=== PATIENT | female | born 1970 | race Caucasian/White ===

== ENCOUNTER → 2017-11-12 | Outpatient (CLI) | payer BC, MEDICARE ==
[~2017-11-12] MED LIST: ESTRACE1 MG PO; ESTRADIOL1 EAC5; EVISTA PO; GLUCOPHAGE500 MG PO; LEVOXYL112 MCG PO; LEXAPRO20 MG PO; METOPROLOL SUCC25 M1 PO; TOPAMAX50 MG PO; WELLBUTRIN 75 M75 M1 PO; ZOCOR 20 MG TAB20 M1 PO
== END ==
LOC: M.CT 12:53
DX: R11.2 Nausea with vomiting, unspecified (principal)

== ENCOUNTER → 2017-12-13 | Outpatient (CLI) | payer BC, MEDICARE | LOC: M.RAD 13:46 | DX: M48.07 Spinal stenosis, lumbosacral region (principal); M53.3 Sacrococcygeal disorders, not elsewhere classified ==

== ENCOUNTER 2019-09-15 21:08 | Emergency (ER) | payer BC, MEDICARE ==
[~2019-09-15] VITALS: Ht 167.6 cm; Wt 79.4 kg
[2019-09-15] MEDS ORDERED: CYMBALTA60 MG PO (21:25)
[2019-09-15] MEDS ORDERED: XANAX 0.5 MG0.5 M1 PO (21:25)
[2019-09-16] MEDS ORDERED: FLEXERIL PO (01:32)
[2019-09-16] MEDS ORDERED: HYDROCODON-ACE1 EAC8 PO (01:32)
[2019-09-16 01:40] VITALS: BP 165/91
== END 2019-09-16 01:40 | disposition home or self-care (01) ==
LOC: M.ERS 21:08
DX: M54.6 Pain in thoracic spine (principal); M54.5 Low back pain; E78.00 Pure hypercholesterolemia, unspecified; N80.9 Endometriosis, unspecified; Z90.49 Acquired absence of other specified parts of digestive tract; Z88.6 Allergy status to analgesic agent

== ENCOUNTER 2019-12-15 00:34 | Emergency (ER) | payer BC, MEDICARE ==
[~2019-12-15] VITALS: Ht 167.6 cm; Wt 81.7 kg
[~2019-12-15 00:34] MED LIST changes: +CYMBALTA60 MG PO; +FLEXERIL PO; +HYDROCODON-ACE1 EAC8 PO; +XANAX 0.5 MG0.5 M1 PO
[2019-12-15] MEDS ORDERED: LIPITOR 20 MG T20 M1 PO (00:51)
[2019-12-15] MEDS ORDERED: PROMS25 WY RECTAL (01:49)
[2019-12-15] MEDS ORDERED: PHENERGAN 25 MG25 M1 PO (01:49)
[2019-12-15] MEDS ORDERED: BUTALB-APAP-CA1 EACH PO (01:49)
[2019-12-15 02:21] VITALS: BP 149/82
== END 2019-12-15 02:22 | disposition home or self-care (01) ==
LOC: M.ERS 00:34
DX: G43.909 Migraine, unspecified, not intractable, without status migrainosus (principal); F41.9 Anxiety disorder, unspecified; E78.00 Pure hypercholesterolemia, unspecified; Z90.710 Acquired absence of both cervix and uterus; Z90.89 Acquired absence of other organs; Z79.899 Other long term (current) drug therapy; Z88.6 Allergy status to analgesic agent

== ENCOUNTER 2020-09-12 14:57 | Emergency (ER) | payer OTHER, MEDICARE ==
[~2020-09-12] VITALS: Ht 167.6 cm; Wt 79.4 kg
[~2020-09-12 14:57] MED LIST changes: +BUTALB-APAP-CA1 EACH PO; +LIPITOR 20 MG T20 M1 PO; +PHENERGAN 25 MG25 M1 PO; +PROMS25 WY RECTAL
[2020-09-12 17:20] VITALS: BP 154/88
== END 2020-09-12 17:21 | disposition home or self-care (01) ==
LOC: M.ERS 14:57
DX: S40.012A Contusion of left shoulder, initial encounter (principal); E78.00 Pure hypercholesterolemia, unspecified; Z88.5 Allergy status to narcotic agent; Z79.899 Other long term (current) drug therapy; Z90.710 Acquired absence of both cervix and uterus; Z98.890 Other specified postprocedural states; W06.XXXA Fall from bed, initial encounter; Y93.89 Activity, other specified; Y92.89 Other specified places as the place of occurrence of the external cause; Y99.9 Unspecified external cause status

== ENCOUNTER 2021-01-04 17:34 | Emergency (ER) | payer OTHER, MEDICARE ==
[~2021-01-04] VITALS: Ht 167.6 cm; Wt 81.7 kg
[2021-01-04] MEDS ORDERED: JARDIANCE10 MG PO (17:52)
[2021-01-04] MEDS ORDERED: MEDROLDOSEPACK PO (19:20)
[2021-01-04] MEDS ORDERED: NORFLEX100 MG PO (19:20)
[2021-01-04] MEDS ORDERED: TRAMADOL 50 MG50 MG PO (19:20)
[2021-01-04 19:32] VITALS: BP 154/90
== END 2021-01-04 19:33 | disposition home or self-care (01) ==
LOC: M.ERS 17:34
DX: S16.1XXA Strain of muscle, fascia and tendon at neck level, initial encounter (principal); R51.9 Headache, unspecified; M54.9 Dorsalgia, unspecified; R42 Dizziness and giddiness; E78.00 Pure hypercholesterolemia, unspecified; Z90.89 Acquired absence of other organs; Z90.711 Acquired absence of uterus with remaining cervical stump; Z98.890 Other specified postprocedural states; Z79.899 Other long term (current) drug therapy; Z88.5 Allergy status to narcotic agent; W20.8XXA Other cause of strike by thrown, projected or falling object, initial encounter; Y93.89 Activity, other specified; Y92.89 Other specified places as the place of occurrence of the external cause; Y99.8 Other external cause status

== ENCOUNTER 2021-03-28 10:15 | Emergency (ER) | payer OTHER, MEDICARE ==
[~2021-03-28] VITALS: Ht 167.6 cm; Wt 78.5 kg
[~2021-03-28 10:15] MED LIST changes: +JARDIANCE10 MG PO; +MEDROLDOSEPACK PO; +NORFLEX100 MG PO; +TRAMADOL 50 MG50 MG PO
[2021-03-28] MEDS ORDERED: NORCO5 PO (12:30)
[2021-03-28] MEDS ORDERED: HYDROCODON-ACE1 EAC7 PO (12:36)
[2021-03-28 12:50] VITALS: BP 114/63
== END 2021-03-28 12:50 | disposition home or self-care (01) ==
LOC: M.ERS 10:15
DX: S39.92XA Unspecified injury of lower back, initial encounter (principal); E78.00 Pure hypercholesterolemia, unspecified; Z90.89 Acquired absence of other organs; Z90.710 Acquired absence of both cervix and uterus; Z98.890 Other specified postprocedural states; Z79.899 Other long term (current) drug therapy; Z88.5 Allergy status to narcotic agent; W01.198A Fall on same level from slipping, tripping and stumbling with subsequent striking against other object, initial encounter; Y93.89 Activity, other specified; Y92.89 Other specified places as the place of occurrence of the external cause; Y99.8 Other external cause status